=== PATIENT | female | born 1985 | race African-American/Black ===

== ENCOUNTER 2018-03-13 19:10 | Emergency (ER) | payer MEDICAID ==
[~2018-03-13] VITALS: Ht 162.6 cm; Wt 100.0 kg
[2018-03-13 19:47] VITALS: BP 121/79
[2018-03-13 20:32] LABS: CLARITY URINE CLEAR (CLEAR); COLOR URINE YELLOW (YELLOW); KETONES URINE NEGATIVE (NEGATIVE); LEUKOCYTE ESTERASE URINE NEGATIVE (NEGATIVE); NITRITE URINE NEGATIVE (NEGATIVE); OCCULT BLOOD URINE NEGATIVE (NEGATIVE); PROTEIN URINE NEGATIVE (NEGATIVE); SPECIFIC GRAVITY URINE 1.016 (1.005-1.030); UROBILINOGEN URINE 0.2 E.U./dL (0.2-1.0)
== END 2018-03-13 21:20 | disposition left against medical advice (07) ==
LOC: ER 20:28
DX: R10.9 Unspecified abdominal pain (principal); Z53.21 Procedure and treatment not carried out due to patient leaving prior to being seen by health care provider
CPT/HCPCS: 81003

== ENCOUNTER 2018-05-21 18:38 | Observation (INO) | payer MEDICAID ==
[~2018-05-21] VITALS: Ht 162.6 cm; Wt 103.4 kg
[2018-05-21] MEDS ORDERED: PREN1TAB78 MT (19:31)
[2018-05-21 19:34] LABS: CLARITY URINE CLEAR (CLEAR); COLOR URINE YELLOW (YELLOW); KETONES URINE NEGATIVE (NEGATIVE); LEUKOCYTE ESTERASE URINE NEGATIVE (NEGATIVE); NITRITE URINE NEGATIVE (NEGATIVE); OCCULT BLOOD URINE NEGATIVE (NEGATIVE); PH URINE 6.5 (4.5-8.0); PROTEIN URINE NEGATIVE (NEGATIVE); SPECIFIC GRAVITY URINE 1.016 (1.005-1.030)
[2018-05-21 20:06] LABS: *BENZODIAZEPINES SCREEN URINE NEGATIVE (NEGATIVE); *COCAINE SCREEN URINE NEGATIVE (NEGATIVE)
[2018-05-21 20:07] LABS: *AMPHETAMINES SCREEN URINE NEGATIVE (NEGATIVE); *BARBITURATES SCREEN URINE NEGATIVE (NEGATIVE); CANNABINOID URINE SCREEN NEGATIVE (NEGATIVE); METHADONE URINE SCREEN NEGATIVE (NEGATIVE); OPIATES URINE SCREEN NEGATIVE (NEGATIVE); PHENCYCLIDINE URINE SCREEN NEGATIVE (NEGATIVE)
== END 2018-05-21 21:05 | disposition home or self-care (01) ==
LOC: L&D 18:38
PROVIDERS: ADMIT Obstetrics & Gynecology; ATTEND Obstetrics & Gynecology
DX: O26.892 Other specified pregnancy related conditions, second trimester (principal); R10.30 Lower abdominal pain, unspecified; O26.852 Spotting complicating pregnancy, second trimester; Z3A.21 21 weeks gestation of pregnancy
CPT/HCPCS: 80305; 81003; 99281; G0378

== ENCOUNTER 2018-07-07 01:05 | Observation (INO) | payer MEDICAID ==
[~2018-07-07] VITALS: Ht 165.1 cm; Wt 103.4 kg
[~2018-07-07 01:05] MED LIST: PREN1TAB78 MT
[2018-07-07] MEDS ORDERED: ACETAMINOPHEN 500MG TABLET PO NR (02:45)
== END 2018-07-07 03:40 | disposition home or self-care (01) ==
LOC: L&D 01:05
PROVIDERS: ADMIT Obstetrics & Gynecology; ATTEND Obstetrics & Gynecology
DX: O99.89 Other specified diseases and conditions complicating pregnancy, childbirth and the puerperium (principal); M54.5 Low back pain; Z3A.28 28 weeks gestation of pregnancy
CPT/HCPCS: 99281; G0378

== ENCOUNTER 2018-08-18 21:32 | Observation (INO) | payer MEDICAID ==
[~2018-08-18] VITALS: Ht 165.1 cm; Wt 106.1 kg
[2018-08-18 23:11] LABS: CLARITY URINE CLEAR (CLEAR); COLOR URINE YELLOW (YELLOW); KETONES URINE NEGATIVE (NEGATIVE); LEUKOCYTE ESTERASE URINE NEGATIVE (NEGATIVE); NITRITE URINE NEGATIVE (NEGATIVE); OCCULT BLOOD URINE NEGATIVE (NEGATIVE); PH URINE 6.5 (4.5-8.0); PROTEIN URINE NEGATIVE (NEGATIVE); SPECIFIC GRAVITY URINE 1.014 (1.005-1.030)
[2018-08-19] MEDS ORDERED: LACTATED RINGERS 1,000 ML IV SCH
== END 2018-08-19 00:50 | disposition home or self-care (01) ==
LOC: L&D 21:32
PROVIDERS: ADMIT Obstetrics & Gynecology; ATTEND Obstetrics & Gynecology
DX: O26.893 Other specified pregnancy related conditions, third trimester (principal); R10.30 Lower abdominal pain, unspecified; R10.2 Pelvic and perineal pain; Z3A.34 34 weeks gestation of pregnancy
CPT/HCPCS: 81003; 99281; G0378; J7120; 96360

== ENCOUNTER 2018-08-25 06:49 | Observation (INO) | payer MEDICAID ==
[~2018-08-25] VITALS: Ht 165.1 cm; Wt 106.1 kg
[2018-08-25 08:10] LABS: CLARITY URINE CLEAR (CLEAR); COLOR URINE YELLOW (YELLOW); KETONES URINE NEGATIVE (NEGATIVE); LEUKOCYTE ESTERASE URINE NEGATIVE (NEGATIVE); NITRITE URINE NEGATIVE (NEGATIVE); OCCULT BLOOD URINE NEGATIVE (NEGATIVE); PH URINE 5.5 (4.5-8.0); PROTEIN URINE NEGATIVE (NEGATIVE); SPECIFIC GRAVITY URINE 1.014 (1.005-1.030)
[2018-08-25] MEDS ORDERED: LACTATED RINGERS 1,000 ML IV SCH (08:30)
[2018-08-25] MEDS ORDERED: BETAMETHASONE ACET/BETAMET 30 MG/5 ML VIAL IM SCH (09:45)
[2018-08-25] MEDS ORDERED: TERBUTALINE SULFATE 1MG/ML VIAL SUBCUT NR (09:45)
== END 2018-08-25 10:15 | disposition home or self-care (01) ==
LOC: L&D 06:49
PROVIDERS: ADMIT Obstetrics & Gynecology; ATTEND Obstetrics & Gynecology
DX: O62.9 Abnormality of forces of labor, unspecified (principal); Z3A.35 35 weeks gestation of pregnancy
CPT/HCPCS: 81003; 99281; G0378; J7120; 96360; 96361

== ENCOUNTER 2018-09-13 10:14 | Observation (INO) | payer MEDICAID | END 2018-09-13 12:20 | disposition home or self-care (01) | LOC: L&D 10:14 | PROVIDERS: ADMIT Obstetrics & Gynecology; ATTEND Obstetrics & Gynecology | DX: O62.9 Abnormality of forces of labor, unspecified (principal); O09.523 Supervision of elderly multigravida, third trimester; Z3A.37 37 weeks gestation of pregnancy | CPT/HCPCS: G0378 ×2; 99281 ==

== ENCOUNTER 2018-09-29 13:17 | Observation (INO) | payer MEDICAID ==
[~2018-09-29] VITALS: Ht 162.6 cm; Wt 106.6 kg
== END 2018-09-29 14:45 | disposition home or self-care (01) ==
LOC: L&D 13:17
PROVIDERS: ADMIT Specialist; ATTEND Specialist
DX: O26.893 Other specified pregnancy related conditions, third trimester (principal); N89.8 Other specified noninflammatory disorders of vagina; O48.1 Prolonged pregnancy; Z3A.40 40 weeks gestation of pregnancy
CPT/HCPCS: 99281; G0378

== ENCOUNTER 2018-10-07 08:16 | Observation (INO) | payer MEDICAID ==
[~2018-10-07] VITALS: Ht 165.1 cm; Wt 107.0 kg
== END 2018-10-07 12:40 | disposition home or self-care (01) ==
LOC: L&D 08:16
PROVIDERS: ADMIT Obstetrics & Gynecology; ATTEND Obstetrics & Gynecology
DX: O62.9 Abnormality of forces of labor, unspecified (principal); O48.0 Post-term pregnancy; O09.523 Supervision of elderly multigravida, third trimester; Z3A.40 40 weeks gestation of pregnancy
CPT/HCPCS: 76805; 76818; 99281; G0378